=== PATIENT | male | born 1975 | race Caucasian/White ===

== ENCOUNTER → 2019-05-11 | Outpatient (REF) | payer OTHER ==
[2019-05-11 18:15] LABS: FREE T4 0.95 NG/DL (0.76-1.46); THYROID STIMULATING HORMONE 0.938 uIU/ML (0.358-3.740)
== END ==
LOC: M LABDRAW1 15:22
PROVIDERS: ATTEND Internal Medicine Endocrinology, Diabetes & Metabolism
DX: E05.00 Thyrotoxicosis with diffuse goiter without thyrotoxic crisis or storm (principal)

== ENCOUNTER 2021-04-07 06:40 | Outpatient (CLI) | payer OTHER ==
[2021-04-07] VITALS (10 sets, daily range): BP systolic 126–144; BP diastolic 84–93
[~2021-04-07] VITALS: Ht 167.6 cm; Wt 94.5 kg
[2021-04-07] MEDS ORDERED: AMLO1TAB25 PO (07:05)
[2021-04-07] MEDS: NS 1,000 ML IV SCH ×3 (08:04→10:05)
[2021-04-07] MEDS ORDERED: FLUO40CA PO (08:18)
[2021-04-07] MEDS ORDERED: LISI10TA22 PO (08:20)
[2021-04-07] MEDS ORDERED: HYDR12.55 PO (08:20)
[2021-04-07] MEDS ORDERED: PRAZ2CAP PO (08:20)
[2021-04-07] MEDS ORDERED: ATOR1TAB21 PO (08:21)
[2021-04-07] MEDS ORDERED: THERTAB52 PO (08:22)
[2021-04-07 08:39] LABS: BLOOD UREA NITROGEN 13 MG/DL (7-18); CALCIUM LEVEL 8.7 MG/DL (8.5-10.1); CARBON DIOXIDE LEVEL 27 MEQ/L (21-32); CHLORIDE LEVEL 106 MEQ/L (98-107); GLOMERULAR FILTRATION RATE > 60.0 (>60); GLUCOSE, FASTING 121 MG/DL (70-100); SODIUM LEVEL 141 MEQ/L (136-145)
[2021-04-07 13:05] LABS: BLOOD UREA NITROGEN 10 MG/DL (7-18); CALCIUM LEVEL 8.4 MG/DL (8.5-10.1); CARBON DIOXIDE LEVEL 26 MEQ/L (21-32); CHLORIDE LEVEL 108 MEQ/L (98-107); CREATININE FOR GFR 0.74 MG/DL (0.70-1.30); GLOMERULAR FILTRATION RATE > 60.0 (>60); GLUCOSE, FASTING 104 MG/DL (70-100); POTASSIUM SERUM 3.8 MEQ/L (3.5-5.1); SODIUM LEVEL 139 MEQ/L (136-145)
== END 2021-04-07 12:30 | disposition home or self-care (01) ==
LOC: M INFU 06:40
PROVIDERS: ATTEND Internal Medicine Endocrinology, Diabetes & Metabolism
DX: I10 Essential (primary) hypertension (principal)